=== PATIENT | male | born 1970 | race Two or more races ===

== ENCOUNTER 2019-12-25 12:48 | Inpatient (IN) ==
[2019-12-25 15:09] LABS: BASOPHILS # (AUTO) 0.1 X10^3/uL (0.0-0.1); BASOPHILS % (AUTO) 0.6 % (0.2-1.0); EOSINOPHILS # (AUTO) 0.1 x10^3/uL (0.0-0.2); EOSINOPHILS % (AUTO) 0.5 % (0.9-2.9); HEMATOCRIT 40.3 % (42.0-54.0); HEMOGLOBIN 13.9 g/dL (13.5-18.0); LYMPHOCYTES # (AUTO) 0.7 X10^3/uL (1.3-2.9); LYMPHOCYTES % (AUTO) 5.6 % (21.0-51.0); MEAN CORPUSCULAR HEMOGLOBIN 29.6 pg (27.0-34.0); MEAN CORPUSCULAR HGB CONC 34.6 g/dL (33.0-35.0); MEAN CORPUSCULAR VOLUME 85.5 fL (80.0-100.0); MEAN PLATELET VOLUME 9.3 fL (7.4-11.0); MONOCYTES # (AUTO) 0.9 x10^3/uL (0.3-0.8); NEUTROPHILS # (AUTO) 10.6 x10^3/uL (2.2-4.8); NEUTROPHILS % (AUTO) 86.3 % (42.0-75.0); PLATELET COUNT 159 X10^3/uL (150.0-450.0); RED BLOOD COUNT 4.71 X10^6/uL (4.7-6.0); RED CELL DISTRIBUTION WIDTH 12.8 % (11.6-16.5); WHITE BLOOD COUNT 12.3 X10^3/uL (3.6-10.0)
[2019-12-25] MEDS ORDERED: TYLENOL 325 MG TAB PO PRN (15:23)
[2019-12-25 15:25] LABS: ALANINE AMINOTRANSFERASE 19 Units/L (12-78); ALBUMIN 3.2 g/dL (3.4-5.0); ALKALINE PHOSPHATASE 127 Units/L (46-116); ASPARTATE AMINO TRANSFERASE 10 Units/L (15-37); BLOOD UREA NITROGEN 17 mg/dL (7-18); CALCIUM 9.1 mg/dL (8.5-10.1); CARBON DIOXIDE 29.1 mmol/L (21-32); CHLORIDE 96 mmol/L (98-107); COR CA(FOR HYPOALB) 9.7 mg/dL (8.5-10.1); COR NA(FOR HYPERGLY) 137 mmol/L (136-145); CREATININE 0.89 mg/dL (0.70-1.30); SODIUM 132 mmol/L (136-145); TOTAL PROTEIN 7.8 g/dL (6.4-8.2); eGFR NON BLACK RACES > 60 (>60)
[2019-12-25 15:32] VITALS: BMI 22.8
[2019-12-25] MEDS ORDERED: PHARMACY CONSULT - VANCOMYCIN XX SCH (16:00)
[2019-12-25] MEDS ORDERED: NS 250 ML IV 250 ML IV ONE (16:22)
[2019-12-25] MEDS: VANCOMYCIN IV *PREMIX 1 G/200 ML BAG 1 G/200 ML PIGGYBACK IV SCH ×2 (16:43→23:25)
[2019-12-25] MEDS: MORPHINE SULFATE INJ 4 MG IVP PRN ×3 (16:44→23:25)
[2019-12-25] MEDS: LR 1000 ML IV 1,000 ML IV SCH (18:15)
[2019-12-26] MEDS: LR 1000 ML IV 1,000 ML IV SCH ×5 (02:17→20:29)
[2019-12-26] MEDS: MORPHINE SULFATE INJ 4 MG IVP PRN ×3 (04:02→17:48)
[2019-12-26 05:17] LABS: BASOPHILS # (AUTO) 0.1 X10^3/uL (0.0-0.1); BASOPHILS % (AUTO) 0.8 % (0.2-1.0); EOSINOPHILS # (AUTO) 0.2 x10^3/uL (0.0-0.2); HEMATOCRIT 35.3 % (42.0-54.0); HEMOGLOBIN 12.4 g/dL (13.5-18.0); LYMPHOCYTES # (AUTO) 0.7 X10^3/uL (1.3-2.9); LYMPHOCYTES % (AUTO) 7.8 % (21.0-51.0); MEAN CORPUSCULAR HEMOGLOBIN 29.8 pg (27.0-34.0); MEAN CORPUSCULAR HGB CONC 35.2 g/dL (33.0-35.0); MEAN CORPUSCULAR VOLUME 84.7 fL (80.0-100.0); MEAN PLATELET VOLUME 9.4 fL (7.4-11.0); MONOCYTES # (AUTO) 0.8 x10^3/uL (0.3-0.8); MONOCYTES % (AUTO) 8.7 % (0.0-13.0); NEUTROPHILS # (AUTO) 7.6 x10^3/uL (2.2-4.8); NEUTROPHILS % (AUTO) 80.7 % (42.0-75.0); PLATELET COUNT 132 X10^3/uL (150.0-450.0); RED BLOOD COUNT 4.16 X10^6/uL (4.7-6.0); WHITE BLOOD COUNT 9.4 X10^3/uL (3.6-10.0)
[2019-12-26 05:25] LABS: ALANINE AMINOTRANSFERASE 19 Units/L (12-78); ALBUMIN 2.6 g/dL (3.4-5.0); ALKALINE PHOSPHATASE 94 Units/L (46-116); ASPARTATE AMINO TRANSFERASE 12 Units/L (15-37); BLOOD UREA NITROGEN 13 mg/dL (7-18); CALCIUM 8.5 mg/dL (8.5-10.1); CARBON DIOXIDE 28.6 mmol/L (21-32); CHLORIDE 98 mmol/L (98-107); COR CA(FOR HYPOALB) 9.6 mg/dL (8.5-10.1); COR NA(FOR HYPERGLY) 137 mmol/L (136-145); CREATININE 0.68 mg/dL (0.70-1.30); SODIUM 134 mmol/L (136-145); TOTAL PROTEIN 6.6 g/dL (6.4-8.2); eGFR NON BLACK RACES > 60 (>60)
[2019-12-26] MEDS: VANCOMYCIN IV *PREMIX 1 G/200 ML BAG 1 G/200 ML PIGGYBACK IV SCH ×2 (05:38→17:50)
[2019-12-26] MEDS ORDERED: NS 1000 ML 1,000 ML ONE (12:35)
[2019-12-26] MEDS ORDERED: SUPRANE ONE (12:53)
[2019-12-26] MEDS ORDERED: DIPRIVAN VIAL ONE (12:53)
[2019-12-26] MEDS ORDERED: ZOFRAN INJ 4 MG VIAL ONE (12:53)
[2019-12-26] MEDS ORDERED: DILAUDID INJ IVP PRN (12:56)
[2019-12-26] MEDS ORDERED: BENADRYL INJ 50 MG VIAL IVP PRN (12:56)
[2019-12-26] MEDS ORDERED: ZOFRAN INJ 4 MG VIAL IVP PRN (12:56)
[2019-12-26] MEDS ORDERED: PHENERGAN INJ 25 MG IM PRN (12:56)
[2019-12-26] MEDS ORDERED: REGLAN INJ 10 MG VIAL IVP PRN (12:56)
[2019-12-26] MEDS ORDERED: FENTANYL INJ 100 mcg ONE (12:58)
[2019-12-26] MEDS ORDERED: PHARMACY COMMENT IV NR (13:30)
[2019-12-26] MEDS ORDERED: DILAUDID INJ ONE (14:09)
[2019-12-26] MEDS: NORCO 10/325 TAB PO PRN (19:09)
[2019-12-26 19:23] LABS: CREATININE 0.61 mg/dL (0.70-1.30); VANCOMYCIN,TROUGH 5.7 ug/mL (15-20)
[2019-12-26] MEDS ORDERED: PHARMACY CONSULT - VANCOMYCIN XX SCH (22:00)
[2019-12-27] MEDS: VANCOMYCIN HCL 500 MG, VANCOMYCIN HCL 1 G in D5W 250 ML IV 250 ML IV SCH ×4 (00:30→22:38)
[2019-12-27] MEDS: LR 1000 ML IV 1,000 ML IV SCH ×3 (02:00→18:35)
[2019-12-27] MEDS: NORCO 10/325 TAB PO PRN ×2 (06:15→18:35)
[2019-12-27] MEDS ORDERED: PHARMACY COMMENT IV NR (21:30)
[2019-12-27 22:03] LABS: CREATININE 0.67 mg/dL (0.70-1.30); VANCOMYCIN,TROUGH 12.2 ug/mL (15-20)
[2019-12-27] MEDS: VANCOMYCIN HCL 2 G in NS 500 ML IV 500 ML IV SCH (22:47)
[2019-12-28] MEDS: MORPHINE SULFATE INJ 4 MG IVP PRN (03:45)
[2019-12-28] MEDS: LR 1000 ML IV 1,000 ML IV SCH (04:19)
[2019-12-28] MEDS: VANCOMYCIN HCL 2 G in NS 500 ML IV 500 ML IV SCH (05:38)
[2019-12-28 06:14] LABS: BASOPHILS # (AUTO) 0.1 X10^3/uL (0.0-0.1); EOSINOPHILS # (AUTO) 0.2 x10^3/uL (0.0-0.2); EOSINOPHILS % (AUTO) 3.2 % (0.9-2.9); HEMATOCRIT 29.8 % (42.0-54.0); HEMOGLOBIN 10.5 g/dL (13.5-18.0); LYMPHOCYTES # (AUTO) 0.9 X10^3/uL (1.3-2.9); LYMPHOCYTES % (AUTO) 14.1 % (21.0-51.0); MEAN CORPUSCULAR HEMOGLOBIN 29.5 pg (27.0-34.0); MEAN CORPUSCULAR HGB CONC 35.2 g/dL (33.0-35.0); MEAN CORPUSCULAR VOLUME 83.7 fL (80.0-100.0); MONOCYTES # (AUTO) 0.8 x10^3/uL (0.3-0.8); MONOCYTES % (AUTO) 11.2 % (0.0-13.0); NEUTROPHILS # (AUTO) 4.8 x10^3/uL (2.2-4.8); NEUTROPHILS % (AUTO) 70.5 % (42.0-75.0); PLATELET COUNT 162 X10^3/uL (150.0-450.0); RED BLOOD COUNT 3.56 X10^6/uL (4.7-6.0); RED CELL DISTRIBUTION WIDTH 12.6 % (11.6-16.5); WHITE BLOOD COUNT 6.7 X10^3/uL (3.6-10.0)
[2019-12-28 06:20] LABS: ALANINE AMINOTRANSFERASE 21 Units/L (12-78); ALBUMIN 2.1 g/dL (3.4-5.0); ALKALINE PHOSPHATASE 85 Units/L (46-116); ASPARTATE AMINO TRANSFERASE 18 Units/L (15-37); BLOOD UREA NITROGEN 10 mg/dL (7-18); CALCIUM 8.1 mg/dL (8.5-10.1); CARBON DIOXIDE 29.1 mmol/L (21-32); CHLORIDE 101 mmol/L (98-107); COR CA(FOR HYPOALB) 9.6 mg/dL (8.5-10.1); COR NA(FOR HYPERGLY) 138 mmol/L (136-145); CREATININE 0.58 mg/dL (0.70-1.30); SODIUM 135 mmol/L (136-145); TOTAL PROTEIN 5.9 g/dL (6.4-8.2); eGFR NON BLACK RACES > 60 (>60)
[2019-12-28 08:21] VITALS: BP 121/74
[2019-12-28] MEDS: NORCO 10/325 TAB PO PRN (10:44)
== END 2019-12-28 12:10 | disposition home or self-care (01) | DRG 486 ==
LOC: MED/SURG 13:04
PROVIDERS: ADMIT Obstetrics & Gynecology Obstetrics; ATTEND Obstetrics & Gynecology Obstetrics
DX: B95.61 Methicillin susceptible Staphylococcus aureus infection as the cause of diseases classified elsewhere; L03.115 Cellulitis of right lower limb; Z11.59 Encounter for screening for other viral diseases; M00.061 Staphylococcal arthritis, right knee
CPT/HCPCS: 36415; 80053; 80202; 82565; 83036; 83605; 85025; 87040; 87070; 87075; 87077; 87186; 87205; 87635; A4222; J1170; J2270; J2405; J2704; J3010; J3370; J3490; J7030; J7040; J7050; J7060; J7120